=== PATIENT | male | born 1985 | race Caucasian/White ===

== ENCOUNTER 2020-10-10 14:05 | Emergency (ER) | payer OTHER ==
[~2020-10-10] VITALS: Ht 185.4 cm; Wt 105.2 kg
[2020-10-10 14:44] LABS: HEMOGLOBIN 17.3 gm/dL (14.0-18.0); MCH 30.6 pg (26.0-34.0); MCHC 34.6 g/dL (28.0-37.0); MCV 88.6 fL (80.0-100.0); MPV 8.2 fl. (7.2-11.1); RBC 5.64 mil/uL (4.50-6.00); RDW-CV 13.7 % (10.5-14.5); WBC 9.7 thou/uL (4.0-11.0)
[2020-10-10 14:49] LABS: CALCIUM 8.8 mg/dL (8.5-10.1); CREATININE 0.9 mg/dL (0.6-1.3); MAGNESIUM 2.3 mg/dL (1.8-2.4); POTASSIUM 3.7 mmol/L (3.5-5.1)
[2020-10-10 16:59] VITALS: BP 139/89
== END 2020-10-10 16:59 | disposition home or self-care (01) ==
LOC: M.ERS 14:05
PROVIDERS: Emergency Medicine Emergency Medical Services
DX: F10.129 Alcohol abuse with intoxication, unspecified (principal)